=== PATIENT | female | born 1970 | race Hispanic/Latino ===

== ENCOUNTER 2024-12-03 17:38 | Emergency (ER) | payer OTHER ==
[~2024-12-03] VITALS: Ht 154.9 cm; Wt 86.2 kg
[~2024-12-03 17:38] MED LIST: PAXLOVID 150-11 EACH PO
[2024-12-03 17:40] VITALS: PULSE 69; RESP 16; TEMP 97.8
[2024-12-03 18:01] LABS: LEUKOCYTE ESTERASE ,URINE LARGE (NEGATIVE); PROTEIN,URINE DIPSTICK NEGATIVE (NEGATIVE); URINE UROBILINOGEN 0.2 mg/dL (0.2 - 1)
[2024-12-03 18:15] LABS: WBC,URINE (MAN) >50 /HPF (0-5)
[2024-12-03] MEDS ORDERED: CEFDINIR300 MG PO (18:39)
[2024-12-03 19:15] VITALS: BP 106/67; PULSE 67; RESP 16; TEMP 97.7; O2SAT 100
== END 2024-12-03 18:50 | disposition home or self-care (01) ==
LOC: ER 18:11
DX: R30.0 Dysuria (principal); N39.0 Urinary tract infection, site not specified; E78.5 Hyperlipidemia, unspecified
CPT/HCPCS: 81001; 87086; 99283